=== PATIENT | female | born 1985 | race Caucasian/White ===

== ENCOUNTER 2017-01-09 08:45 | Emergency (ER) | payer MEDICAID ==
[~2017-01-09] VITALS: Ht 167.6 cm; Wt 57.0 kg
[~2017-01-09 08:45] MED LIST: ADVI200T PO; DICL50TA3 PO; MMW SWISH-SPIT; PENI500T PO; Z.0.BCPILL PO
[2017-01-09 08:46] VITALS: BP 129/82; PULSE 113; RESP 16; TEMP 99.1; O2SAT 99
[2017-01-09] MEDS ORDERED: KLON2TAB PO (09:10)
[2017-01-09] MEDS ORDERED: PHEN0.4T PO (09:23)
[2017-01-09] MEDS ORDERED: BACT800T5 PO (09:23)
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
[2017-01-09 09:29] LABS: BLOOD, URINE LARGE (NEG); GLUCOSE,URINE NEG (NEG); KETONE, URINE TRACE mg/dL (NEG); NITRITE,URINE POS (NEG)
[2017-01-09 09:34] LABS: METHOD OF COLLECTION CLEAN CATCH; URINE COLOR LIGHT-BROWN (YELLW/STRAW)
[2017-01-09 09:35] LABS: COMMENT (UR) CULTURE INDICATED; CULTURE IF INDICATED CULTURE INDICATED; RBC, URINE INNUM /hpf (0-3)
[2017-01-09] MEDS ORDERED: CIPR-9 PO (09:50)
[2017-01-09] MEDS ORDERED: CIPROFLOXACIN 500 MG TAB PO ONE (10:00)
== END 2017-01-09 10:18 | disposition home or self-care (01) ==
LOC: PHED 08:45
DX: N39.0 Urinary tract infection, site not specified (principal)
CPT/HCPCS: 81001; 84703; 87086; 99283